=== PATIENT | male | born 1945 | race Caucasian/White ===

== ENCOUNTER 2018-12-18 09:26 | Inpatient (IN) ==
[~2018-12-18 09:26] MED LIST: Vancomycin 1,000 MG, Sodium Chloride IRRigation 1,000 ML IR ONE
[2018-12-18] MEDS ORDERED: Lidocaine -MPF 2% 2 ML VIAL ONE (10:24)
[2018-12-18] MEDS ORDERED: *HR* FentaNYL (PF) 100 MCG/2 ML VIAL ONE (10:24)
[2018-12-18] MEDS ORDERED: *HR* Succinylcholine 200 MG/10 ML VIAL IVP ONE (10:24)
[2018-12-18] MEDS ORDERED: Ondansetron 4 MG/2 ML VIAL ONE (10:24)
[2018-12-18] MEDS ORDERED: *HR* Rocuronium Bromide 50 MG/5 ML VIAL ONE (10:24)
[2018-12-18] MEDS ORDERED: Lidocaine HCL 4 ML Topical Solution (Laryng-O-Jet Kit Sterile Pak) TP ONE (10:28)
[2018-12-18] MEDS ORDERED: Dexamethasone 4 MG/ML VIAL ONE (10:28)
[2018-12-18] MEDS ORDERED: Albuterol 2.5 MG/3 ML NEBULIZER IH ONE ×2 (10:34→11:19)
[2018-12-18] MEDS ORDERED: CeFAZolin Syr 2,000MG/20 ML 2,000 MG/20 ML SYRINGE IVPB ONE (10:34)
[2018-12-18] MEDS ORDERED: Ringers Solution, Lactated 1,000 ML IVC SCH (10:45)
[2018-12-18] MEDS ORDERED: *HR* Propofol 200 MG/20 ML VIAL IVP ONE (11:03)
[2018-12-18] MEDS ORDERED: *HR* FentaNYL (PF) 100 MCG/2 ML VIAL IVP PRN (11:19)
[2018-12-18] MEDS ORDERED: *HR* Promethazine 25 MG/ML VIAL IVP PRN (11:19)
[2018-12-18] MEDS ORDERED: Acetaminophen IV 1,000 MG/100 ML INFUS..BTL IVPB ONE (11:19)
[2018-12-18] MEDS ORDERED: *HR* OxyCODONE Immed Rel 5 MG TABLET PO PRN ×2 (11:19→16:14)
[2018-12-18] MEDS ORDERED: Ondansetron 4 MG/2 ML VIAL IVP ONE (11:19)
[2018-12-18] MEDS ORDERED: *HR* Labetalol 20 MG/4 ML SYRINGE IVP PRN ×2 (11:19→16:14)
[2018-12-18] MEDS ORDERED: Heparin 1,000 UNITS/500 mL 500 ML ONE (11:25)
[2018-12-18] MEDS ORDERED: Protamine Sulfate 50 MG/5 ML VIAL IVP ONE (11:52)
[2018-12-18] MEDS ORDERED: Heparin 1,000 UNITS/500 mL 0 ML ONE (11:52)
[2018-12-18] MEDS ORDERED: Bupivacaine-MPF 0.25% 10 ML VIAL ONE (11:52)
[2018-12-18] MEDS ORDERED: *HR* Vasopressin 20 UNIT/ML VIAL ONE (12:04)
[2018-12-18] MEDS ORDERED: *HR* PHENYLEPHRINE 1,000 MCG/10 ML SYRINGE IVP ONE (12:04)
[2018-12-18] MEDS ORDERED: EPHEDrine 50 MG/ML VIAL ONE (12:31)
[2018-12-18] MEDS ORDERED: *HR* Heparin 5,000 UNIT/ML VIAL ONE ×2 (13:17→13:41)
[2018-12-18] MEDS ORDERED: *HR* Labetalol 20 MG/4 ML SYRINGE IVP ONE (13:59)
[2018-12-18] MEDS ORDERED: 0.9 % Sodium Chloride 1,000 ML IVC SCH (16:14)
[2018-12-18] MEDS ORDERED: Naloxone 0.4 MG/ML INJ IVP PRN (16:14)
[2018-12-18] MEDS ORDERED: Acetaminophen 325 MG TABLET PO PRN (16:14)
[2018-12-18] MEDS ORDERED: *HR* HYDROcodone/Acet 5/325 mg TABLET PO PRN (16:14)
[2018-12-18] MEDS ORDERED: Ondansetron 4 MG/2 ML VIAL IVP PRN (16:14)
[2018-12-18] MEDS ORDERED: Famotidine 20 MG TABLET PO PRN (16:14)
[2018-12-18] MEDS: *HR* Metoprolol 5 MG/5 ML VIAL IVP SCH (17:44)
[2018-12-18] MEDS ORDERED: Vancomycin 1,000 MG in D5% in Water 250 ML IVPB ONE (23:30)
[2018-12-19] MEDS: *HR* Metoprolol 5 MG/5 ML VIAL IVP SCH ×2 (05:15→05:21)
[2018-12-19] MEDS ORDERED: *HR* Heparin 5,000 UNIT/ML VIAL SQ SCH ×2 (06:00)
[2018-12-19 08:43] VITALS: BP 109/46
[2018-12-19] MEDS ORDERED: Aspirin Enteric Coated 81 MG Tablet PO SCH (09:00)
[2018-12-19] MEDS ORDERED: Metoprolol 100 MG TABLET PO SCH (09:00)
[2018-12-19] MEDS ORDERED: Losartan/HCTZ 50-12.5 TABLET PO SCH (09:00)
== END 2018-12-19 11:40 | disposition home or self-care (01) | DRG 24 ==
LOC: SAMDAY 09:26 → 2NNU 16:12
PROVIDERS: ADMIT Surgery; ATTEND Surgery

== ENCOUNTER 2020-01-09 20:09 | Observation (INO) ==
[2020-01-09] MEDS ORDERED: Ondansetron 4 MG/2 ML VIAL IVP PRN (23:12)
[2020-01-09] MEDS ORDERED: Naloxone 0.4 MG/ML INJ IVP PRN (23:12)
[2020-01-09] MEDS ORDERED: 0.9 % Sodium Chloride 1,000 ML IVC SCH (23:15)
[2020-01-10] MEDS: Piperacillin/Tazobactam 3.375 GM in 0.9 % Sodium Chloride Mini Bag 100 ML IVPB SCH ×3 (03:57→19:32)
[2020-01-10 04:35] LABS: Basophils # 0.1 K/mcL (0.0-0.2); Basophils % 1.3 %; Eosinophils # 0.1 K/mcL (0.0-0.6); Eosinophils % 1.3 %; Hematocrit 49.7 % (37.5-50.1); Hemoglobin 16.1 g/dL (12.9-16.9); Immature Granulocytes % 0.3 % (0-4); Lymphocytes # 2.8 K/mcL (0.6-4.6); Lymphocytes % 35.1 %; Mean Corpuscular HGB Conc 32.4 g/dL (31.6-35.5); Mean Corpuscular Hemoglobin 31.3 pg (28.0-33.3); Mean Corpuscular Volume 96.7 fL (83.0-100.0); Mean Platelet Volume 11.2 fL (9.4-12.4); Monocytes # 0.6 K/mcL (0.0-1.3); Neutrophils # 4.3 K/mcL (1.6-8.9); Platelet Count 160 K/mcL (140-400); Red Blood Count 5.14 M/mcL (4.19-5.50); Red Cell Distribution Width 14.6 % (11.5-14.5); White Blood Count 7.8 K/mcL (4.3-11.1)
[2020-01-10 04:53] LABS: Alanine Aminotransferase 170 Units/L (7-52); Albumin 3.9 g/dL (3.5-5.7); Albumin/Globulin Ratio 1.8 (1.1-2.2); Alkaline Phosphatase 86 Units/L (34-104); Aspartate Amino Transferase 119 Units/L (13-39); BUN/Creatinine Ratio 17 (6-26); Bilirubin,Total 1.1 mg/dL (0.3-1.0); Blood Urea Nitrogen 17 mg/dL (8-23); Calcium 8.9 mg/dL (8.6-10.3); Carbon Dioxide 23 mEq/L (23-29); Chloride 107 mEq/L (98-107); Globulin 2.2 g/dL (2.4-3.5); Glucose 95 mg/dL (70-105); Osmolality,Calculated 287 (280-300); Potassium 4.4 mEq/L (3.5-5.1); Sodium 138 mEq/L (136-145); Total Protein 6.1 g/dL (6.4-8.9); eGFR For African Americans > 60 (> 60); eGFR For Non-African Americans > 60 (> 60)
[2020-01-10 04:58] LABS: INR 1.4; Prothrombin Time 15.7 Seconds (9.4-12.1)
[2020-01-10] MEDS ORDERED: Metoprolol XL (24 HR) Succ 50 MG TAB.ER.24H PO SCH ×2 (09:00→21:00)
[2020-01-10] MEDS ORDERED: RANITIDINE HCL 300 MG PO PRN (09:09)
[2020-01-10] MEDS ORDERED: Perflutren Lipid Microsphere 1.3 ML in 0.9 % Sodium Chloride 8.7 ML IVP PRN (09:11)
[2020-01-10] MEDS ORDERED: Metoprolol XL (24 HR) Succ 50 MG TAB.ER.24H PO ONE (13:45)
[2020-01-10 14:16] LABS: Creatine Kinase 77 Units/L (30-223); Troponin I < 0.03 ng/mL (< 0.04)
[2020-01-10] MEDS: *HR* Heparin 5,000 UNIT/ML VIAL SQ SCH (17:12)
[2020-01-10] MEDS: *HR* Digoxin 0.5 MG/2 ML AMPUL IVP SCH (19:33)
[2020-01-11] MEDS: *HR* Digoxin 0.5 MG/2 ML AMPUL IVP SCH ×2 (00:55→05:05)
[2020-01-11 02:04] LABS: Basophils # 0.1 K/mcL (0.0-0.2); Basophils % 1.2 %; Eosinophils # 0.1 K/mcL (0.0-0.6); Eosinophils % 1.6 %; Hematocrit 46.2 % (37.5-50.1); Hemoglobin 14.7 g/dL (12.9-16.9); Immature Granulocytes % 0.3 % (0-4); Lymphocytes # 2.4 K/mcL (0.6-4.6); Lymphocytes % 27.5 %; Mean Corpuscular HGB Conc 31.8 g/dL (31.6-35.5); Mean Corpuscular Hemoglobin 30.4 pg (28.0-33.3); Mean Corpuscular Volume 95.5 fL (83.0-100.0); Mean Platelet Volume 11.2 fL (9.4-12.4); Monocytes # 0.7 K/mcL (0.0-1.3); Neutrophils # 5.3 K/mcL (1.6-8.9); Platelet Count 144 K/mcL (140-400); Red Blood Count 4.84 M/mcL (4.19-5.50); Red Cell Distribution Width 14.6 % (11.5-14.5); Segmented Neutrophils % 61.4 %; White Blood Count 8.7 K/mcL (4.3-11.1)
[2020-01-11 02:25] LABS: Alanine Aminotransferase 138 Units/L (7-52); Albumin 3.6 g/dL (3.5-5.7); Albumin/Globulin Ratio 1.8 (1.1-2.2); Alkaline Phosphatase 69 Units/L (34-104); Aspartate Amino Transferase 79 Units/L (13-39); BUN/Creatinine Ratio 16 (6-26); Bilirubin,Direct 0.3 mg/dL (0.0-0.2); Bilirubin,Total 1.3 mg/dL (0.3-1.0); Blood Urea Nitrogen 18 mg/dL (8-23); Calcium 8.5 mg/dL (8.6-10.3); Carbon Dioxide 23 mEq/L (23-29); Chloride 107 mEq/L (98-107); Glucose 84 mg/dL (70-105); Osmolality,Calculated 287 (280-300); Potassium 4.2 mEq/L (3.5-5.1); Sodium 138 mEq/L (136-145); Total Protein 5.6 g/dL (6.4-8.9); eGFR For African Americans > 60 (> 60); eGFR For Non-African Americans > 60 (> 60)
[2020-01-11] MEDS: Piperacillin/Tazobactam 3.375 GM in 0.9 % Sodium Chloride Mini Bag 100 ML IVPB SCH (03:20)
[2020-01-11] MEDS: *HR* Heparin 5,000 UNIT/ML VIAL SQ SCH (04:18)
[2020-01-11] MEDS ORDERED: Metoprolol 100 MG TABLET PO SCH (07:00)
[2020-01-11] MEDS ORDERED: (Ezetimibe 10 MG) PO SCH (09:00)
[2020-01-11] MEDS ORDERED: Metoprolol XL (24 HR) Succ 50 MG TAB.ER.24H PO SCH (09:00)
[2020-01-11] MEDS ORDERED: Famotidine 20 MG TABLET PO SCH (09:00)
[2020-01-11] MEDS ORDERED: *HR* Dextrose 50 % in Water (Vial) 50 ML VIAL IVP ONE (10:04)
[2020-01-11] MEDS ORDERED: *HR* Heparin 5,000 UNIT/ML VIAL IVP ONE (10:38)
[2020-01-11] MEDS ORDERED: *HR* Heparin 5,000 UNIT/ML VIAL IVP PRN ×2 (10:38)
[2020-01-11] MEDS ORDERED: Heparin 25,000UNIT/250ML 1/2NS 25,000 UNIT/250 ML IV.SOLN IVC SCH (10:45)
[2020-01-11 10:52] VITALS: BP 139/77
== END 2020-01-11 14:58 | disposition left against medical advice (07) ==
LOC: 3ANU → SUATTDRO 22:23
PROVIDERS: ADMIT Internal Medicine; ATTEND Internal Medicine

== ENCOUNTER 2020-10-29 15:36 | Inpatient (IN) ==
[2020-10-29] MEDS ORDERED: *HR* Metoprolol 5 MG/5 ML VIAL IVP PRN (20:33)
[2020-10-29] MEDS ORDERED: *HR* Metoprolol 5 MG/5 ML VIAL IVP ONE (20:36)
[2020-10-29] MEDS: Metoprolol 100 MG TABLET PO SCH (23:03)
[2020-10-29] MEDS: cilostazoL 100 MG TABLET PO SCH (23:04)
[2020-10-29] MEDS: Apixaban 5 MG TABLET PO SCH (23:04)
[2020-10-30] MEDS ORDERED: 0.9 % Sodium Chloride 1,000 ML IVC ONE (07:30)
[2020-10-30] MEDS ORDERED: 0.9 % Sodium Chloride 250 ML IVC ONE (07:32)
[2020-10-30] MEDS: amLODIPine 5 MG TABLET PO SCH (07:38)
[2020-10-30] MEDS: Famotidine 20 MG TABLET PO SCH (07:38)
[2020-10-30] MEDS: Metoprolol 100 MG TABLET PO SCH ×2 (07:38→20:01)
[2020-10-30] MEDS: Aspirin Enteric Coated 81 MG Tablet PO SCH (07:38)
[2020-10-30] MEDS: cilostazoL 100 MG TABLET PO SCH ×2 (07:39→20:01)
[2020-10-30] MEDS: Apixaban 5 MG TABLET PO SCH ×2 (07:40→20:01)
[2020-10-30] MEDS ORDERED: NON-FORMULARY MEDICATION 1 EACH EACH (Ezetimibe 10 MG Tablet) PO SCH (09:00)
[2020-10-30] MEDS ORDERED: hydroCHLOROthiazide 25 MG TABLET PO SCH (09:00)
[2020-10-30 15:08] LABS: INR 1.9; Prothrombin Time 21.5 Seconds (9.4-12.1)
[2020-10-30 15:22] LABS: Alanine Aminotransferase 37 Units/L (7-52); Albumin 4.2 g/dL (3.5-5.7); Albumin/Globulin Ratio 1.9 (1.1-2.2); Alkaline Phosphatase 72 Units/L (34-104); Aspartate Amino Transferase 21 Units/L (13-39); BUN/Creatinine Ratio 17 (6-26); Bilirubin,Total 0.7 mg/dL (0.3-1.0); Blood Urea Nitrogen 17 mg/dL (8-23); Calcium 9.4 mg/dL (8.6-10.3); Carbon Dioxide 24 mEq/L (23-29); Chloride 106 mEq/L (98-107); Chol/HDL Ratio 4.3 (0-4.9); Cholesterol 145 mg/dL (< 200); Globulin 2.2 g/dL (2.4-3.5); Glucose 112 mg/dL (70-105); HDL Cholesterol 34 mg/dL (40-59); LDL Cholesterol,Calculated 84 mg/dL (< 100); Osmolality,Calculated 286 (280-300); Potassium 4.4 mEq/L (3.5-5.1); Sodium 137 mEq/L (136-145); Total Protein 6.4 g/dL (6.4-8.9); Triglycerides 133 mg/dL (< 150); eGFR For African Americans > 60 (> 60); eGFR For Non-African Americans > 60 (> 60)
[2020-10-30 16:21] LABS: Estimated Average Glucose 143 mg/dl; Hemoglobin A1C 6.6 %
[2020-10-30 21:22] LABS: Amphetamine Screen,Urine Negative ng/mL (Cutoff=1000); Barbiturate Screen,Urine Negative ng/mL (Cutoff=200); Benzodiazepines Screen,Urine Negative ng/mL (Cutoff=200); Cannabinoid Screen,Urine Negative ng/mL (Cutoff = 50); Cocaine Screen,Urine Negative ng/mL (Cutoff= 300); Opiate Screen,Urine Negative ng/mL (Cutoff=300); Phencyclidine Screen,Urine Negative ng/mL (Cutoff=25)
[2020-10-31 04:45] LABS: Basophils # 0.1 K/mcL (0.0-0.2); Basophils % 0.7 %; Eosinophils # 0.1 K/mcL (0.0-0.6); Hematocrit 42.9 % (37.5-50.1); Hemoglobin 14.9 g/dL (12.9-16.9); Immature Granulocytes % 0.3 % (0-4); Lymphocytes # 2.5 K/mcL (0.6-4.6); Lymphocytes % 28.5 %; Mean Corpuscular HGB Conc 34.7 g/dL (31.6-35.5); Mean Corpuscular Hemoglobin 32.7 pg (28.0-33.3); Mean Corpuscular Volume 94.1 fL (83.0-100.0); Monocytes # 0.6 K/mcL (0.0-1.3); Monocytes % 7.2 %; Neutrophils # 5.6 K/mcL (1.6-8.9); Platelet Count 168 K/mcL (140-400); Red Blood Count 4.56 M/mcL (4.19-5.50); Red Cell Distribution Width 14.3 % (11.5-14.5); Segmented Neutrophils % 62.3 %; White Blood Count 8.9 K/mcL (4.3-11.1)
[2020-10-31] MEDS: cilostazoL 100 MG TABLET PO SCH (08:05)
[2020-10-31] MEDS: Apixaban 5 MG TABLET PO SCH (08:05)
[2020-10-31] MEDS: Aspirin Enteric Coated 81 MG Tablet PO SCH (08:05)
[2020-10-31] MEDS: amLODIPine 5 MG TABLET PO SCH (08:05)
[2020-10-31] MEDS: Famotidine 20 MG TABLET PO SCH (08:05)
[2020-10-31] MEDS: Metoprolol 100 MG TABLET PO SCH (08:05)
[2020-10-31] MEDS ORDERED: 0.9 % Sodium Chloride 1,000 ML IV ONE (11:37)
[2020-10-31] MEDS ORDERED: 0.9 % Sodium Chloride 1,000 ML ONE (11:42)
[2020-10-31 15:26] VITALS: BP 97/83
[2020-10-31] MEDS ORDERED: Isovue-370 500 ML BOTTLE IVP ONE (15:38)
== END 2020-10-31 19:12 | disposition left against medical advice (07) | DRG 45 ==
LOC: 2NENU → SUATTDRO 10-30 14:14
PROVIDERS: ADMIT Internal Medicine; ATTEND Internal Medicine

== ENCOUNTER 2020-11-01 16:21 | Observation (INO) ==
[2020-11-01] MEDS ORDERED: Naloxone 0.4 MG/ML INJ IVP PRN (16:50)
[2020-11-01] MEDS ORDERED: Isovue-370 500 ML BOTTLE IVP ONE (17:59)
[2020-11-02 05:14] LABS: Basophils # 0.1 K/mcL (0.0-0.2); Eosinophils # 0.1 K/mcL (0.0-0.6); Eosinophils % 1.3 %; Hematocrit 42.9 % (37.5-50.1); Hemoglobin 14.3 g/dL (12.9-16.9); Immature Granulocytes % 0.5 % (0-4); Lymphocytes # 2.4 K/mcL (0.6-4.6); Lymphocytes % 28.4 %; Mean Corpuscular HGB Conc 33.3 g/dL (31.6-35.5); Mean Corpuscular Hemoglobin 31.4 pg (28.0-33.3); Mean Corpuscular Volume 94.3 fL (83.0-100.0); Mean Platelet Volume 10.6 fL (9.4-12.4); Monocytes # 0.7 K/mcL (0.0-1.3); Monocytes % 8.2 %; Neutrophils # 5.1 K/mcL (1.6-8.9); Platelet Count 165 K/mcL (140-400); Red Blood Count 4.55 M/mcL (4.19-5.50); Red Cell Distribution Width 14.2 % (11.5-14.5); Segmented Neutrophils % 60.6 %; White Blood Count 8.3 K/mcL (4.3-11.1)
[2020-11-02 05:35] LABS: BUN/Creatinine Ratio 19 (6-26); Blood Urea Nitrogen 18 mg/dL (8-23); Calcium 8.8 mg/dL (8.6-10.3); Carbon Dioxide 21 mEq/L (23-29); Chloride 110 mEq/L (98-107); Glucose 84 mg/dL (70-105); Osmolality,Calculated 287 (280-300); Potassium 4.1 mEq/L (3.5-5.1); Sodium 138 mEq/L (136-145); eGFR For African Americans > 60 (> 60); eGFR For Non-African Americans > 60 (> 60)
[2020-11-02] MEDS ORDERED: Aspirin 81 MG TAB.CHEW PO SCH (09:00)
[2020-11-02] MEDS ORDERED: Apixaban 5 MG TABLET PO SCH (09:00)
[2020-11-02 14:45] VITALS: BP 114/71
== END 2020-11-02 17:00 | disposition home or self-care (01) ==
LOC: 3BNU → SUATTDRO 17:13
PROVIDERS: ADMIT Internal Medicine; ATTEND Internal Medicine